=== PATIENT | female | born 1995 | race Two or more races ===

== ENCOUNTER 2024-10-18 13:12 | Emergency (ER) | payer MEDICAID, SELFPAY ==
--- NOTE | 2024-10-18 13:25 | EDNOTE_ITS ---
<Statement entered by Jennifer Starr MD - 10/18/24 16:21> As co-signing physician, I was present and available for consult prn. I concur with the plan and care as documented by the midlevel provider. ED General RME/HPI General Chief complaint: General Adult/Misc Complain Stated complaint: medication refill Time Seen by Provider: 10/18/24 13:23 Arrival date/time: 10/18/24 13:12 29-year-old female with history of IBS presents the emergency department today stating that she takes Bentyl daily but has run out of her medication patient reports that she needs a refill on her meds patient reports no fever or vomiting Limitations: no limitations Related Data Home Medications ?Medication ?Instructions ?Recorded ?Confirmed medroxyprogesterone 10 mg tablet 30 mg PO QDAY 09/02/18 09/02/18 Previous Rx's ?Medication ?Instructions ?Recorded dicyclomine 10 mg capsule 20 mg (2 x 10 mg) PO BID PRN 10/18/24 abdominal pain #30 caps Allergies Allergy/AdvReac Type Severity Reaction Status Date / Time corn Allergy Severe Swelling Verified 10/18/24 13:17 of Lip/Tongue/Throat milk Allergy Severe Swelling Verified 10/18/24 13:17 of Lip/Tongue/Throat soy Allergy Severe Swelling Verified 10/18/24 13:17 of Lip/Tongue/Throat wheat Allergy Severe Swelling Verified 10/18/24 13:17 of Lip/Tongue/Throat lopez Allergy Intermediate SWELLS Verified 01/06/22 18:50 UP,FEVER morphine Allergy Mild Vomiting Verified 01/06/22 18:50 Sulfa (Sulfonamide Allergy Mild RASH,HIVES Verified 01/06/22 18:50 Antibiotics) tramadol Allergy Mild Vomiting Verified 01/06/22 18:50 clams Allergy Verified 10/18/24 13:16 Fish Containing Products Allergy Verified 10/18/24 13:16 scallops Allergy Verified 10/18/24 13:16 Review of Systems Review of Systems Systems Reviewed: All systems reviewed, normal except as documented Constitutional Constitutional: Reports system reviewed and no additional complaints, except as documented, Denies fever(s) and Denies headache(s) Eyes Eyes: Reports system reviewed and no additional complaints, except as documented and Denies blurry vision ENT Ears, Nose, Mouth, and Throat: Reports system reviewed and no additional complaints, except as documented, Denies headache(s), Denies nasal congestion and Denies nasal discharge Cardiovascular Cardiovascular: Reports system reviewed and no additional complaints, except as documented, Denies chest pain and Denies dyspnea Respiratory Respiratory: Reports system reviewed and no additional complaints, except as documented, Denies chest congestion, Denies cough and Denies dyspnea Gastrointestinal Gastrointestinal: Reports system reviewed and no additional complaints, except as documented, Denies abdominal pain, Denies nausea and Denies vomiting Integumentary/Breasts Skin/Breast: Reports system reviewed and no additional complaints, except as documented and Denies rash Neurologic Neurologic: Reports system reviewed and no additional complaints, except as documented, Reports as per HPI and Denies headache(s) Past Medical History Past Medical History CARDIAC: Negative Congestive Heart Failure RESPIRATORY: Negative Chronic Obstructive Pulmonary Disease (COPD) GENITOURINARY: Negative Renal Disease ENDOCRINE: Negative Diabetes Mellitus Type 1 or Diabetes Mellitus Type 2 PSYCHO/SOCIAL: Positive Anxiety and Post Traumatic Stress Disorder Social History SMOKING STATUS: Current every day smoker ED Exam General Limitations: Present no limitations General appearance: Present alert and in no apparent distress Head Head exam: Present atraumatic, normocephalic and normal inspection Eye Eye exam: Present normal appearance, PERRL and EOMI; Absent conjunctival injection ENT ENT exam: Present normal exam, normal oropharynx and mucous membranes moist Neck Neck exam: Present normal inspection, full ROM and trachea midline Chest Chest inspection: Present normal inspection and symmetric chest wall rise Respiratory Respiratory exam: Present normal lung sounds bilaterally; Absent respiratory distress Cardiovascular Cardiovascular exam: Present regular rate, normal rhythm and normal heart sounds Abdominal Exam Abdominal exam: Present soft and normal bowel sounds; Absent distention, tenderness, guarding, rebound, rigidity, Hill's sign or tenderness at McBurney's Point Abdominal tenderness: Absent RUQ or RLQ Extremities Exam Extremities exam: Present normal inspection and full ROM Back Exam Back exam: Present normal inspection and full ROM Neurological Exam Neurological exam: Present alert, oriented X3 and CN II-XII intact Psychiatric Psychiatric exam: Present normal affect and normal mood Skin Skin exam: Present warm, dry, intact and normal color Course Quality Measures none Orders Category Date Time Status Dicyclomine [Bentyl] Med 10/18/24 13:24 Discontinued 20 mg PO X1 ONE Vital Signs Vital signs: O2 saturation 98% room air within normal limits MDM Patient data External records reviewed:: [facility] previous records Clinical information provided by:: patient Social determinants that could affect healthcare access:: none Patient has the following chronic illnesses:: IBS How is presenting disease/condition affected by chronic disease/condition?: caused by Evaluation data The following diagnostics were reviewed and interpreted by me:: other (specify) (N/A) Lab and/or radiology exams considered but not ordered:: Consider not ordered Interpretation Summary: N/A Medications Medications considered but not ordered:: Given Medication administrations:: Medication Administration History Discontinued Medications Dicyclomine HCl (Dicyclomine 10 Mg Capsule) 20 mg PO X1 ONE Stop: 10/18/24 13:25 Given Consultations Consultation(s) initiated? (list below): No Diagnosis Differential Diagnosis ED Complaint MDM: Abdominal pain, appendicitis, gastroenteritis, IBS Most likely diagnosis given after review of the tests above:: IBS Admission Indicated Admission indicated?: not indicated Explain why admission is indicated or not indicated:: No criteria Admission Request Was there a request for admission?: No Disposition Plan Disposition Plan: Discharge Discharge Attestation Discharge Attestation: The patient and all family members were given an opportunity to ask questions and understood the discharge instructions. Discharge instructions specifically effects, indications for sooner follow up or return to the emergency department, and the expected course of current diagnosis. Patient condition: Stable Medical Decision Making MDM Narrative MDM Narrative: 29-year-old female with history of IBS presents the emergency department today stating that she takes Bentyl daily but has run out of her medication patient reports that she needs a refill on her meds patient reports no fever or vomiting On exam patient does not appear ill or toxic patient is not appear in acute distress Patient given a dose of Bentyl here and discharged home with the same Patient discharged home in no distress to follow-up with primary care doctor in the next 24 to 48 hours and for any worsening symptoms to return to the ER immediately Differential Diagnosis Differential Diagnosis: Abdominal pain, appendicitis, gastroenteritis, IBS Medical Records Medical records reviewed: Yes I reviewed the patient's medical records. Discharge Plan Plan Patient Disposition: HOME (Self Care) Disposition Comment: Stable Prescriptions/Referrals Prescriptions/Med Rec: New dicyclomine 10 mg capsule 20 mg PO BID PRN (Reason: abdominal pain) Qty: 30 0RF No Action medroxyprogesterone 10 mg Tablet 30 mg PO QDAY Problem List Clinical Impression: Irritable bowel syndrome (IBS), Medication refill Patient/Caregiver Discharge Instructions Education Materials: How the Colon Works Additional Instructions: Please follow up with your primary care doctor in the next 24-48hrs for any worsening symptoms return here immediately Print Language: Vietnamese Stand Alone Forms: Katie Award Info., Patient Portal Info Letter PA/CALENDER SUPERVISOR Supervising Physician PA/CALENDER SUPERVISOR Supervising Physician: Dr. Starr
[2024-10-18 13:29] VITALS: BP 130/79; PULSE 92; RESP 16; TEMP 37.2; O2SAT 99; BMI 26.7
[2024-10-18] MEDS: DICYCLOMINE 10 MG CAPSULE 20 MG PO (13:33)
== END 2024-10-18 14:21 | disposition home or self-care (01) ==
LOC: SERX 13:42
PROVIDERS: Emergency Provider Emergency Medicine
DX: Z76.0 Encounter for issue of repeat prescription (principal); K58.9 Irritable bowel syndrome, unspecified
CPT/HCPCS: 99282; A9270

== ENCOUNTER 2024-12-30 10:18 | Emergency (ER) | payer MEDICAID, SELFPAY ==
--- NOTE | 2024-12-30 10:27 | EKG_ITS ---
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
[2024-12-30 10:41] VITALS: BP 110/80; PULSE 92; RESP 16; TEMP 36.7; O2SAT 99; BMI 24.4
--- NOTE | 2024-12-30 10:45 | XR_ITS ---
Examination: CT brain head without contrast. 2-D sagittal coronal reconstructions Date and time of exam:December 30, 2024 1055 hours INDICATIONS: Headaches dizziness with syncopal episode today CTDI: vol (mGy):45 DLP: (mGycm):926 Technique: Multiple CT axial sections of the brain have been obtained, 5 mm slice thickness. Contrast has not been administered. 2-D sagittal, coronal reconstructions have been obtained Low dose protocols were performed. One or more of the following dose reduction techniques were used; automated exposure control, adjustment of the mA and/or KV according to patient size, use of iterative reconstruction technique. Findings: No significant ventricular enlargement. Intra-axial or extra-axial hemorrhage density is not seen. No mass effect or midline shift Basal cisterns are not remarkable. Fourth ventricle is midline. Cranial vault intact. Impression: Negative for acute hemorrhage, mass effect or midline shift Advise clinical correlation and follow-up accordingly
--- NOTE | 2024-12-30 10:45 | PD.EDRME ---
Rapid Medical Screening Exam RME Arrival date/time: 12/30/24 10:18 29-year-old female presents to the Emergency Department today with complaints of multiple episodes of syncope or near syncopal episodes Chief Complaint: Syncope / Near Syncope Vital signs: Vital Signs Temperature 98.1 F 12/30/24 10:41 Pulse Rate 92 12/30/24 10:41 Respiratory Rate 16 12/30/24 10:41 Blood Pressure 110/80 12/30/24 10:41 Pulse Oximetry (%) 99 12/30/24 10:41 Oxygen Delivery Method Room Air 12/30/24 10:41
--- NOTE | 2024-12-30 10:46 | XR_ITS ---
Examination: PA lateral chest 2 views TECHNIQUE: Upright PA lateral chest 2 views Exam date and time: December 30 2024 1112 hours INDICATIONS: Syncopal episodes today. FINDINGS: Normal heart size No aspiration pneumonia. Lungs are clear IMPRESSION: No aspiration pneumonia
[2024-12-30 11:57] LABS: Basophils % (Auto) 1 % (0-2.5); Eosinophils # (Auto) 0.1 Thou/mm3 (0.0-0.5); Eosinophils % (Auto) 2 % (0-10); Hematocrit 47.4 % (36.0-46.0); Hemoglobin 15.6 g/dL (12.0-16.0); Immature Granulocytes % (Auto) 0 % (0-0); Immature Granulocytes Auto 0.01 Thou/mm3 (0.00-0.00); Lymphocytes # (Auto) 2.3 Thou/mm3 (1.0-4.8); Lymphocytes % (Auto) 41 % (10-50); Mean Corpuscular HGB Conc 32.9 g/dl (31.0-37.0); Mean Corpuscular Hemoglobin 27.6 pg (25.0-35.0); Mean Corpuscular Volume 84 fL (80-100); Monocytes # (Auto) 0.4 Thou/mm3 (0.0-0.8); Monocytes % (Auto) 6 % (0-12); Neutrophils # (Auto) 2.8 Thou/mm3 (1.8-7.7); Neutrophils % (Auto) 50 % (37-80); Nucleated Red Blood Cell % 0 /100 WBC (0); Platelet Count 187 Thou/mm3 (140-440); Red Blood Count 5.65 Miln/mm3 (4.00-5.20); White Blood Count 5.6 Thou/mm3 (3.6-11.0)
[2024-12-30 12:19] LABS: B-Type Natriuretic Peptide < 20 pg/mL (0-100)
[2024-12-30 12:28] LABS: Alanine Aminotransferase < 7 U/L (10-49); Albumin, Serum 4.5 gm/dL (3.5-5.0); Albumin/Globulin Ratio 1.5 (1.2-2.2); Alkaline Phosphatase 83 U/L (46-116); Anion Gap 9 (7-16); Aspartate Amino Transferase 20 U/L (0-34); BUN/Creatinine Ratio 8 Ratio (12-20); Bilirubin,Total 0.5 mg/dL (0.3-1.2); Blood Urea Nitrogen 7 mg/dL (9-23); Calcium 9.8 mg/dL (8.3-10.6); Calcium (Corrected) 9.8 mg/dL (8.5-10.1); Carbon Dioxide 24.8 mMol/L (20.0-31.0); Chloride 104 mMol/L (98-107); Creatinine (Component) 0.9 mg/dL (0.6-1.3); Estimated Creatinine Clearance 86.3 mL/min (>60); Free T4 (Free Thyroxine) 1.56 ng/dL (0.89-1.76); Glucose 74 mg/dL (74-106); Osmolality,Calculated 272 (275-295); Potassium 4.9 mMol/L (3.4-5.1); Sodium 138 mMol/L (136-145); Total Protein 7.5 gm/dL (5.7-8.2); Troponin I < 0.002 ng/mL (0.0-0.045); eGFR > 60 See Note
[2024-12-30 12:41] LABS: Collection Type, Urine Clean Catch; WBC,Urine 0 /hpf (0-5)
[2024-12-30 12:58] LABS: Amphetamine/Methamp Scrn,U Negative (Negative); Barbiturate Screen,Urine Negative (Negative); Benzodiazepines Screen,Urine Negative (Negative); Benzoylecgonine Screen, Ur Negative (Negative); Fentanyl Screen,Urine Negative (Negative); Opiate Screen,Urine Negative (Negative); THC Screen,Urine Negative (Negative)
[2024-12-30 13:08] LABS: HCG Qualitative,Urine Negative
[2024-12-30 13:34] LABS: Bacteria,Urine Rare; Bilirubin,Urine Negative (Negative); Blood,Urine Negative (Negative); Clarity,Urine Clear (Clear/Hazy); Color,Urine Yellow (Lt Yel-Yel); Glucose, Urine Negative (Negative); Ketones,Urine Trace (Negative); Leukocyte Esterase,Urine Negative (Negative); Nitrite,Urine Negative (Negative); PH,Urine 5.5 (5.0-7.0); Protein,Urine Trace (Neg - Trace); RBC,Urine 2 /hpf (0-3); Specific Gravity,Urine 1.026 (1.001-1.035); Squamous Epithelial Cell,Urine 5 /hpf (0-5); Urobilinogen,Urine Negative mg/dL (0.0-1.0)
[2024-12-30 14:09] VITALS: BP 124/84; PULSE 88; RESP 18; TEMP 36.9; O2SAT 98
--- NOTE | 2024-12-30 15:19 | EDNOTE_ITS ---
<Statement entered by Jennifer Starr MD - 12/31/24 16:20> As co-signing physician, I was present and available for consult prn. I concur with the plan and care as documented by the midlevel provider. ED Syncope RME/HPI General Chief Complaint: Syncope / Near Syncope Stated Complaint: MULTIPLE SYNCOPAL EPISODES Time Seen by Provider: 12/30/24 15:18 Arrival date/time: 12/30/24 10:18 RME / HPI RME / HPI narrative: 29-year-old female presents to the Emergency Department today with complaints of multiple episodes of syncope or near syncopal episodes. It is random, usually when the patient is standing. She been ongoing for the last 1 week. Patient was seen by PCP, and pending referral to specialist. However patient was advised to go to the emergency room to rule out acute problem. Patient denies any other complaints patient is ambulatory. Related Data Home Medications ?Medication ?Instructions ?Recorded ?Confirmed medroxyprogesterone 10 mg tablet 30 mg PO QDAY 8 09/02/18 Previous Rx's ?Medication ?Instructions ?Recorded dicyclomine 10 mg capsule 20 mg (2 x 10 mg) PO BID PRN 10/18/24 abdominal pain #30 caps Allergies Allergy/AdvReac Type Severity Reaction Status Date / Time corn Allergy Severe Swelling Verified 10/18/24 13:17 of Lip/Tongue/Throat milk Allergy Severe Swelling Verified 10/18/24 13:17 of Lip/Tongue/Throat soy Allergy Severe Swelling Verified 10/18/24 13:17 of Lip/Tongue/Throat wheat Allergy Severe Swelling Verified 10/18/24 13:17 of Lip/Tongue/Throat lopez Allergy Intermediate SWELLS Verified 01/06/22 18:50 UP,FEVER morphine Allergy Mild Vomiting Verified 01/06/22 18:50 Sulfa (Sulfonamide Allergy Mild RASH,HIVES Verified 01/06/22 18:50 Antibiotics) tramadol Allergy Mild Vomiting Verified 01/06/22 18:50 clams Allergy Verified 10/18/24 13:16 Fish Containing Products Allergy Verified 10/18/24 13:16 scallops Allergy Verified 10/18/24 13:16 Review of Systems Review of Systems Narrative Review of Systems: Review of system reviewed and within normal limits except mentioned in HPI ED Exam Narrative Physical exam: VITAL SIGNS: Reviewed. GENERAL APPEARANCE: Alert and interactive, follows commands, no acute distress, HEAD AND FACE: Non-traumatic. ENT: PERRL, pink conjunctivitis, eyelid no trauma, Mucous membrane moist. NECK: Supple, nontender, no nuchal rigidity. CHEST: No tenderness, no crepitus, no paradoxical movement, no retractions. LUNGS: Clear, well ventilated, symmetric, no rales, no wheezing, no ronchi, no stridor, good breath sounds bilaterally. HEART: Regular rate, regular rhythm, no murmur, no gallops. ABDOMEN: Soft, positive bowel sounds, nondistended, no guarding, nontender, no rebound, no masses, RECTAL: Deferred. GENITAL: Deferred. NEUROLOGICAL: Gross motor function intact sensory function intact, Appropriate for age. MUSCULOSKELETAL: low back nontender, full range of motion. EXTREMITIES: Nontender, full range of motion. SKIN: Color pink, dry, no rash, no lacerations, no abrasions, no contusions. LYMPHATICS: Deferred. Course Quality Measures none Orders Category Date Time Status EKG (ED ONLY) *Do not use* NOW Care 12/30/24 10:[address] head/brain wo con Stat Exams 12/30/24 10:45 Completed EKG (ED Only) Stat Exams 12/30/24 10:27 Draft XR chest 2V Stat Exams 12/30/24 10:46 Completed B-Type Natriuretic Peptide Stat Lab 12/30/24 11:46 Completed CBC Stat Lab 12/30/24 11:46 Completed Comprehensive Metabolic Panel Stat Lab 12/30/24 11:46 Completed Drug Screen,Urine Stat Lab 12/30/24 12:27 Completed Free T4 (Free Thyroxine) Stat Lab 12/30/24 11:46 Completed HCG Qualitative,Urine Stat Lab 12/30/24 12:27 Completed TSH [Thyroid Stimulating Hormone] Stat Lab 12/30/24 11:46 Completed Troponin I Stat Lab 12/30/24 11:46 Completed Urinalysis Stat Lab 12/30/24 12:27 Completed Vital Signs Vital signs: Vital Signs Temperature 98.1 F 12/30/24 10:41 Pulse Rate 92 12/30/24 10:41 Respiratory Rate 16 12/30/24 10:41 Blood Pressure 110/80 12/30/24 10:41 Pulse Oximetry (%) 99 12/30/24 10:41 Oxygen Delivery Method Room Air 12/30/24 10:41 Syncope [facility] Narrative [facility] Narrative:: 29-year-old female presents to the Emergency Department today with complaints of multiple episodes of syncope or near syncopal episodes. It is random, usually when the patient is standing. She been ongoing for the last 1 week. Patient was seen by PCP, and pending referral to specialist. However patient was advised to go to the emergency room to rule out acute problem. Patient denies any other complaints patient is ambulatory. Patient cardiac workup today all came back normal. Laboratory workup also came back unremarkable. No anemia noted LFTs are normal total bili is normal urinalysis no UTI, CT scan of the head came back normal I personally reviewed and interpreted the x-ray of this patient. There is no acute abnormalities found, no infiltrates no pneumothorax no hemothorax normal chest x-ray. Review of other structures was without significant abnormal findings also. I additionally reviewed the radiologist report and agree with the interpretation. EKG showed normal sinus rhythm, ventricular rate of [address] segment elevation depression noted. Patient was advised to follow-up with PCP and for referral to internet security specialist. Patient agrees with the plan. Patient data External records reviewed:: None Clinical information provided by:: patient Social determinants that could affect healthcare access:: none Patient has the following chronic illnesses:: None How is presenting disease/condition affected by chronic disease/condition?: no chronic disease Evaluation data The following diagnostics were reviewed and interpreted by me:: lab results, radiology exam(s) and EKG tracing(s) Lab and/or radiology exams considered but not ordered:: None Interpretation Summary: See results in MDM Medications / Prescriptions Medications or Prescriptions considered but not ordered:: None Medication administrations:: None Consultations Consultation(s) initiated? (list below): No Diagnosis Syncope Differential Diagnosis: vasovagal syncope Most likely diagnosis given after review of the tests above:: Vasovagal syncope Admission Indicated Admission indicated?: not indicated Explain why admission is indicated or not indicated:: None Admission Request Was there a request for admission?: No Disposition Plan Disposition Plan: Discharge Discharge Attestation Discharge Attestation: The patient was given an opportunity to ask questions and understood the discharge instructions. Discharge instructions specifically effects, indications for sooner follow up or return to the emergency department, and the expected course of current diagnosis. Patient condition: Stable Discharge Plan Plan Patient Disposition: HOME (Self Care) Disposition Comment: Stable Prescriptions/Referrals Prescriptions/Med Rec: No Action medroxyprogesterone 10 mg Tablet 30 mg PO QDAY dicyclomine 10 mg capsule 20 mg PO BID PRN (Reason: abdominal pain) Qty: 30 0RF Referrals: No Primary/Family,Physician [Primary Care Provider] - In 1 week Problem List Clinical Impression: Vasovagal syncope Patient/Caregiver Discharge Instructions Discharge Activity: activity as tolerated Education Materials: What Is Syncope?, Treatment for Vasovagal Syncope Additional Instructions: Thank you for the opportunity for serving you today. You are stable for discharged . You are advised to: Follow-up with your PCP in 1 to 2 days and asked for referral to internet security specialist Return to ED for worsening of symptoms Increase oral fluids Print Language: South Sudanese Stand Alone Forms: Katie Award Info., Patient Portal Info Letter PA/ISABELL Supervising Physician DRISS/ISABELL Supervising Physician: MD Matty
== END 2024-12-30 15:33 | disposition home or self-care (01) ==
PROVIDERS: Nurse Practitioner Primary Care; Emergency Provider Emergency Medicine
DX: R55 Syncope and collapse (principal); R51.9 Headache, unspecified; R42 Dizziness and giddiness; R94.31 Abnormal electrocardiogram [ECG] [EKG]
CPT/HCPCS: 36415; 70450; 71046; 80053; 80307; 81001; 81025; 83880; 84439; 84443; 84484; 85025; 93005; 99284